=== PATIENT | female | born 1980 | race Caucasian/White ===

== ENCOUNTER → 2019-05-17 | Outpatient (CLI) | payer BC ==
[~2019-05-17] MED LIST: COLACE100 MG PO; EXCEDRIN1 TAB PO; FERROUS SU325 MG/TAB PO; MULTIPLE VITAMI1 CAP PO; PRENATAL VITAMI1 TA5 PO; PROBIOTIC FORMU1 CAP PO; SUDAFED30 MG PO; TYLENOL 500MG500 MG PO
== END ==
LOC: COL.RAD 05-16 13:45
DX: M25.541 Pain in joints of right hand (principal)
CPT/HCPCS: J3301; Q9967

== ENCOUNTER → 2019-11-15 | Outpatient (CLI) | payer BC | LOC: COL.RAD 08:00 | DX: M79.644 Pain in right finger(s) (principal) | CPT/HCPCS: J3301; Q9967 ==

== ENCOUNTER → 2020-04-24 | Outpatient (CLI) | payer BC | LOC: COL.RAD 14:00 | DX: M25.531 Pain in right wrist (principal) | CPT/HCPCS: J3301; Q9967 ==

== ENCOUNTER → 2020-08-27 | Outpatient (CLI) | payer BC | LOC: COL.RAD 10:45 | DX: M25.531 Pain in right wrist (principal) | CPT/HCPCS: J3301; Q9967 ==

== ENCOUNTER → 2020-08-27 | Outpatient (CLI) | payer BC | LOC: MC.RAD 08:31 | DX: Z12.31 Encounter for screening mammogram for malignant neoplasm of breast (principal) ==

== ENCOUNTER → 2021-02-03 | Outpatient (CLI) | payer BC | LOC: COL.RAD 02-02 14:00 | DX: M25.531 Pain in right wrist (principal) | CPT/HCPCS: J3301; Q9967 ==

== ENCOUNTER → 2024-05-01 | Outpatient (CLI) | payer BC | LOC: MC.RAD 08:12 | DX: Z12.31 Encounter for screening mammogram for malignant neoplasm of breast (principal) ==